=== PATIENT | female | born 1990 | race Caucasian/White ===

== ENCOUNTER 2018-06-18 05:52 | Emergency (ER) | payer BC, OTHER ==
[2018-06-18] MEDS ORDERED: ONDANSETRON 4 MG/2 ML VIAL ONE (06:32)
[2018-06-18] MEDS ORDERED: MORPHINE 4 MG/ML SYR ONE (06:32)
[2018-06-18] MEDS ORDERED: NA CHLORIDE 0.9% 1,000 ML ONE (06:35)
[2018-06-18 06:42] LABS: Absolute Lymphocytes (CBC) 2.2 K/uL (0.7-4.9); Absolute Monocytes 0.5 K/uL (0.1-1.3); Absolute Neutrophil 6.7 K/uL (1.8-8.0); Basophils % 0.7 % (0-1.3); Eosinophils % 2.2 % (0-4.4); Hematocrit 38.7 % (36.0-45.0); Lymphocytes % 22.3 % (15.3-44.8); MCH 31.2 pg (27.0-35.0); MCV 89.9 fL (80-100); MPV 9.6 fL (7.6-11.3); Monocytes % 5.4 % (3.3-12.3); RBC Red Blood Cell Count 4.31 M/uL (3.86-4.86)
[2018-06-18 06:43] LABS: Urine Bacteria >50 /HPF (<20); Urine Culture Reflex Order NOT NEEDED; Urine RBC NONE SEEN /HPF (NONE SEEN)
[2018-06-18 07:02] LABS: Urine Blood NEGATIVE (NEG); Urine Glucose NEGATIVE (NEG); Urine Protein NEGATIVE (NEG); Urine pH 5.5 (5.0-7.0)
[2018-06-18 07:12] LABS: Albumin 3.7 g/dL (3.4-5.0); Bilirubin Direct 0.2 mg/dL (0-0.2); Bilirubin Total 0.4 mg/dL (0.2-1.0); Potassium 3.3 mmol/L (3.5-5.1); Protein, Total 7.2 g/dL (6.4-8.2)
--- NOTE | 2018-06-18 10:01 | RAD REPORT ---
EXAM DESCRIPTION: CTAbdomen Pelvis W Contrast - 06/18/2018 9:27 am CLINICAL HISTORY: Abdominal pain. ABD PAIN COMPARISON: No comparisons TECHNIQUE: Biphasic CT imaging of the abdomen and pelvis was performed with 100 ml non-ionic IV cont rast. All CT scans are performed using dose optimization technique as appropriate and may include automated exposure control or mA/KV adjustment according to patient size. FINDINGS: The lung bases are clear. The liver, spleen, pancreas, adrenal glands and kidneys are within normal limits. No bowel obstruction, free air, free fluid or abscess. Moderate fecal retention in the colon. The sandrita endix is normal. Small fat containing umbilical hernia. No evidence of significant lymphadenopathy. No suspicious bony findings. IMPRESSION: No acute intra-abdominal or pelvic finding. Moderate fecal retention in the colon.
--- NOTE | 2018-06-18 10:05 | ER ---
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 pt is 3 months post . Transition of care: patient was not received from another setting of care. Onset of symptoms was June 18, 2018. Risk Assessment: Do you want to hurt yourself or someone else? Patient reports no desire to harm self or others. Initial Sepsis Screen: Does the patient meet any 2 criteria? No. Patient's initial sepsis screen is negative. Does the patient have a suspected source of infection? No. Patient's initial sepsis screen is negative. Care prior to arrival: None. 06:05 Method Of Arrival: Ambulatory ak1 06:05 Acuity: JORGE 3 ak1 Triage Assessment: 06:07 General: Appears uncomfortable, Behavior is calm, cooperative. Pain: Complains of pain ak1 in epigastric area. EENT: No signs and/or symptoms were reported regarding the EENT system. Neuro: No deficits noted. Cardiovascular: No deficits noted. Respiratory: No deficits noted. GI: Abdomen is round non-distended, Bowel sounds present X 4 quads. Reports upper abdominal pain, nausea, vomiting. : No signs and/or symptoms were reported regarding the genitourinary system. Derm: No signs and/or symptoms reported regarding the dermatologic system. Musculoskeletal: Range of motion: intact in all extremities, Reports pain in left scapular area, right scapular area, left subscapular area, right subscapular area and thoracic area since 0500. 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 - Social history:: Smoking status: Patient uses tobacco products, smokes one-half pack cigarettes per day. - Ebola Screening: : No symptoms or risks identified at this time. - Family history:: not pertinent. - Hospitalizations: : recently underwent approximately 3-4 months ago. Screenin:10 Abuse screen: Denies threats or abuse. Denies injuries from another. Nutritional ak1 screening: No deficits noted. Tuberculosis screening: No symptoms or risk factors identified. Fall Risk None identified. Assessment: 06:10 Reassessment: Patient appears in no apparent distress at this time. No changes from ak1 previously documented assessment. see triage assessment. General: Appears uncomfortable. Neuro: Level of Consciousness is awake, alert, obeys commands, Oriented to person, place, time, situation, Gait is steady, Speech is normal. 07:06 Reassessment: report given to Johnny Smith RN and Rachael Brunson RN. ak1 07:54 Reassessment: Patient appears in no apparent distress at this time. Patient and/or sg family updated on plan of care and expected duration. Pain level reassessed. CT notified pt finished PO contrast, spoke with Rody Patient states feeling better. GI: Patient currently denies nausea, pain. Vital Signs: 06:09 BP 121 / 71; Pulse 76; Resp 18; Temp 97.7(O); Pulse Ox 100% on R/A; Weight 83.91 kg ak1 (R); Height 5 ft. 4 in. (162.56 cm) (R); Pain 6/10; 06:37 BP 106 / 56; Pulse 75; Resp 16; Pulse Ox 100% on R/A; ak1 07:55 BP 99 / 54; Pulse 77; Resp 16; Pulse Ox 100% on R/A; sg 09:00 BP 98 / 62; Pulse 74; Resp 16 S; Pulse Ox 100% on R/A; jl7 10:21 BP 92 / 63; Pulse 75; Resp 16 S; Pulse Ox 99% on R/A; jl7 06:09 Body Mass Index 31.75 (83.91 kg, 162.56 cm) ak1 ED Course: 05:53 Patient arrived in ED. am2 06:05 Terri Morin, RN is Primary Nurse. ak1 06:06 Triage completed. ak1 06:07 Arm band placed on Patient placed in an exam room, on a stretcher, on pulse oximetry, ak1 Patient notified of wait time. 06:10 Patient has correct armband on for positive identification. Bed in low position. Call ak1 light in reach. Side rails up X 1. Pulse ox on. NIBP on. 06:12 Sharonda Parisi FNP is [facility]. kav 06:13 Shemar Larios MD is Attending Physician. kav 06:25 Urine Culture Sent. eb 06:25 Urine Microscopic Only Sent. eb 06:25 Inserted saline lock: 20 gauge in right antecubital area, using aseptic technique. ds4 Blood collected. 06:32 Basic Metabolic Panel Sent. ds4 06:32 CBC with Diff Sent. ds4 06:32 Creatinine for Radiology Sent. ds4 06:32 Hepatic Function Sent. ds4 06:32 Lipase Sent. ds4 06:32 Urine Microscopic Only Sent. ds4 06:32 Urine Culture Sent. ds4 06:32 Urine --Ancillary (enter results) Sent. ds4 06:32 Urine Dipstick--Ancillary (enter results) Sent. ds4 07:52 Primary Nurse role handed off by Terri Morin, RN sg 07:52 Johnny Bella, RN is Primary Nurse. sg 08:[address] Scan. sg 09:27 CT Abd/Pelvis - W/Contrast In Process Unspecified. EDMS 09:27 CT completed. Patient tolerated procedure well. Patient moved to CT via wheelchair. sj Patient moved back from CT. 10:22 No provider procedures requiring assistance completed. Patient did not have IV access jl7 during this emergency room visit. Administered Medications: 06:32 Drug: Zofran 4 mg Route: IVP; Site: right antecubital; ak1 06:35 Follow up: Response: No adverse reaction ak1 06:32 Drug: NS 0.9% 1000 ml Route: IV; Rate: 1000 ml; Site: right antecubital; ak1 06:33 Drug: morphine 2 mg Route: IVP; Site: right antecubital; ak1 06:35 Follow up: Response: No adverse reaction; Pain is decreased ak1 Outcome: 10:04 Discharge ordered by . kav 10:22 Discharged to home ambulatory. jl7 10:22 Condition: stable 10:22 Discharge instructions given to patient, family, Instructed on discharge instructions, follow up and referral plans. medication usage, Demonstrated understanding of instructions, follow-up care, medications, Prescriptions given X 2. 10:23 Patient left the ED. jl7 Addendum: 06/21/2018 15:19 Addendum: Culture Results: Positive urine culture. No further action required. Bacteria s s sensitive to prescribed antibiotic. Signatures: Dispatcher [employer] EDMS Johnny Bella, RN RN sg Sharonda Parisi, SQL PROGRAMMER ANALYST SQL PROGRAMMER ANALYST Rody Long Shelby, RN RN Alphonso Becker4 Terri Morin RN RN Rachael Leyva RN RN jl7 Devorah Dietz Elizabeth eb
--- NOTE | 2018-06-18 10:05 | EDPHYS ---
Physician Documentation [facility] Name: Katherine Ny Age: 28 yrs Sex: Female : 1990 Arrival Date: 06/18/2018 Time: 05:53 Bed 6 Private MD: ED Physician Shemar Larios HPI: 06/18 06:13 This 28 yrs old Female presents to ER via Ambulatory with complaints of Back kav Pain - rad to ribs. 06:46 The patient presents with abdominal pain in the epigastric area. Onset: The kav symptoms/episode began/occurred acutely, just prior to arrival, reports "...pain woke her from sleep". The symptoms radiate to back. Associated signs and symptoms: Pertinent positives: nausea and vomiting. The symptoms are described as crampy, intermittent, sharp. 06:48 Modifying factors: The symptoms are alleviated by nothing, the symptoms are aggravated kav by nothing. Severity of pain: At its worst the pain was moderate just prior to arrival, in the emergency department the pain is unchanged. The patient has not experienced similar symptoms in the past. The patient has not recently seen a physician. 3 months post-. 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 - Social history:: Smoking status: Patient uses tobacco products, smokes one-half pack cigarettes per day. - Ebola Screening: : No symptoms or risks identified at this time. - Family history:: not pertinent. - Hospitalizations: : recently underwent approximately 3-4 months ago. ROS: 06:48 Constitutional: Negative for fever, chills, and weight loss, Eyes: Negative for injury, kav pain, redness, and discharge, ENT: Negative for injury, pain, and discharge, Neck: Negative for injury, pain, and swelling, Cardiovascular: Negative for chest pain, palpitations, and edema, Respiratory: Negative for shortness of breath, cough, wheezing, and pleuritic chest pain, Back: Negative for injury and pain, : Negative for injury, bleeding, discharge, and swelling, MS/Extremity: Negative for injury and deformity, Skin: Negative for injury, rash, and discoloration, Neuro: Negative for headache, weakness, numbness, tingling, and seizure, Psych: Negative for depression, anxiety, suicide ideation, homicidal ideation, and hallucinations, Allergy/Immunology: Negative for hives, rash, and allergies, Endocrine: Negative for neck swelling, polydipsia, polyuria, polyphagia, and marked weight changes, Hematologic/Lymphatic: Negative for swollen nodes, abnormal bleeding, and unusual bruising. 06:48 Abdomen/GI: Positive for abdominal pain, nausea and vomiting, Negative for diarrhea, abdominal distension, hematemesis, black/tarry stool, rectal bleeding. Exam: 06:48 Constitutional: This is a well developed, well nourished patient who is awake, alert, kav and in no acute distress. Head/Face: Normocephalic, atraumatic. Eyes: Pupils equal round and reactive to light, extra-ocular motions intact. Lids and lashes normal. Conjunctiva and sclera are non-icteric and not injected. Cornea within normal limits. Periorbital areas with no swelling, redness, or edema. ENT: Nares patent. No nasal discharge, no septal abnormalities noted. Tympanic membranes are normal and external auditory canals are clear. Oropharynx with no redness, swelling, or masses, exudates, or evidence of obstruction, uvula midline. Mucous membranes moist. Neck: Trachea midline, no thyromegaly or masses palpated, and no cervical lymphadenopathy. Supple, full range of motion without nuchal rigidity, or vertebral point tenderness. No Meningismus. Chest/axilla: Normal chest wall appearance and motion. Nontender with no deformity. No lesions are appreciated. Cardiovascular: Regular rate and rhythm with a normal S1 and S2. No gallops, murmurs, or rubs. Normal PMI, no JVD. No pulse deficits. Respiratory: Lungs have equal breath sounds bilaterally, clear to auscultation and percussion. No rales, rhonchi or wheezes noted. No increased work of breathing, no retractions or nasal flaring. Back: No spinal tenderness. No costovertebral tenderness. Full range of motion. Skin: Warm, dry with normal turgor. Normal color with no rashes, no lesions, and no evidence of cellulitis. MS/ Extremity: Pulses equal, no cyanosis. Neurovascular intact. Full, normal range of motion. Neuro: Awake and alert, GCS 15, oriented to person, place, time, and situation. Cranial nerves II-XII grossly intact. Motor strength 5/5 in all extremities. Sensory grossly intact. Cerebellar exam normal. Normal gait. Psych: Awake, alert, with orientation to person, place and time. Behavior, mood, and affect are within normal limits. 06:48 Abdomen/GI: Inspection: abdomen appears normal, Bowel sounds: normal, in all quadrants, Palpation: moderate abdominal tenderness, in the epigastric area, right upper quadrant and left upper quadrant, Indicators: McBurney's point is not tender, Oliver's sign is negative, Rovsing's sign is negative, Obturator sign is negative, Psoas sign is negative. Vital Signs: 06:09 BP 121 / 71; Pulse 76; Resp 18; Temp 97.7(O); Pulse Ox 100% on R/A; Weight 83.91 kg ak1 (R); Height 5 ft. 4 in. (162.56 cm) (R); Pain 6/10; 06:37 BP 106 / 56; Pulse 75; Resp 16; Pulse Ox 100% on R/A; ak1 07:55 BP 99 / 54; Pulse 77; Resp 16; Pulse Ox 100% on R/A; sg 09:00 BP 98 / 62; Pulse 74; Resp 16 S; Pulse Ox 100% on R/A; jl7 10:21 BP 92 / 63; Pulse 75; Resp 16 S; Pulse Ox 99% on R/A; jl7 06:09 Body Mass Index 31.75 (83.91 kg, 162.56 cm) ak MDM: 06:13 Medical screening is not applicable. kav 06:48 Data reviewed: vital signs, nurses notes. kav 08:09 Awaiting: CT scan results, still drinking contrast. kav 09:59 Awaiting: CT scan results. kav 10:03 Data reviewed: lab test result(s), radiologic studies, CT scan. kav 10:19 Data reviewed: lab test result(s), radiologic studies, ct scan with no noted issues ka with pancreas. 06/18 06:17 Order name: Urine Dipstick--Ancillary (enter results); Complete Time: 07:20 06/18 06:17 Order name: Urine --Ancillary (enter results); Complete Time: 07:20 06/18 06:17 Order name: Urine Culture 06/18 06:17 Order name: Urine Microscopic Only; Complete Time: 06:53 06/18 06:53 Interpretation: Abnormal. [facility] 06/18 06:23 Order name: Basic Metabolic Panel; Complete Time: 07:20 [facility] 06/18 06:23 Order name: CBC with Diff; Complete Time: 07:20 [facility] 06/18 06:23 Order name: Creatinine for Radiology; Complete Time: 07:20 [facility] 06/18 06:23 Order name: Hepatic Function; Complete Time: 07:20 [facility] 06/18 06:23 Order name: Lipase; Complete Time: 07:20 [facility] 06/18 10:13 Interpretation: LIP [id number]. [facility] 06/18 06:23 Order name: IV Saline Lock; Complete Time: 06:32 [facility] 06/18 07:24 Order name: CT Abd/Pelvis - W/Contrast; Complete Time: 10:02 [facility] 06/18 10:03 Interpretation: Abnormal: Moderate fecal content is colon. [facility] 06/18 06:23 Order name: Labs collected and sent; Complete Time: 06:32 kav Administered Medications: 06:32 Drug: Zofran 4 mg Route: IVP; Site: right antecubital; ak1 06:35 Follow up: Response: No adverse reaction ak1 06:32 Drug: NS 0.9% 1000 ml Route: IV; Rate: 1000 ml; Site: right antecubital; ak1 06:33 Drug: morphine 2 mg Route: IVP; Site: right antecubital; ak1 06:35 Follow up: Response: No adverse reaction; Pain is decreased ak1 Disposition: 06/18/18 10:04 Discharged to Home. Impression: Constipation, Urinary tract infection, site not specified. - Condition is Stable. - Discharge Instructions: Urinary Tract Infection, Adult, [id number]. - Prescriptions for Miralax 17 gram/dose Oral - take 1 packet by ORAL route once daily for 8-10 days dilute powder in 8 ounces of water or juice; 1 bottle. Cipro 500 mg Oral Tablet - take 1 tablet by ORAL route every 12 hours for 7 days; 14 tablet. - Medication Reconciliation Form, Thank You Letter form. - Follow up: Private Physician; When: 5 - 6 days; Reason: If symptoms return, Recheck today's complaints, Continuance of care, Re-evaluation by your physician. - Problem is new. - Symptoms have improved. - Notes: return to ED if: temp \\T\\gt; 101 F intractable nausea/vomiting intractable abdominal pain f/u with pcp in 5-7 days torepeat lipase levels Signatures: Dispatcher [employer] EDMS Sharonda Parisi, ELECTRONICS HARDWARE DESIGN ENGINEER ELECTRONICS HARDWARE DESIGN ENGINEER kaTerri Lowe, RN RN ak1 Rachael Romeo RN RN jl7 Corrections: (The following items were deleted from the chart) 10:11 10:04 06/18/2018 10:04 Discharged to Home. Impression: Constipation. Condition is kav Stable. Forms are Medication Reconciliation Form, Thank You Letter, Antibiotic Education, Prescription Opioid Use. Follow up: Private Physician; When: 5 - 6 days; Reason: If symptoms return, Recheck today's complaints, Continuance of care, Re-evaluation by your physician. Problem is new. Symptoms have improved. kav 10:23 10:11 06/18/2018 10:04 Discharged to Home. Impression: Constipation; Urinary tract jl7 infection, site not specified. Condition is Stable. Prescriptions for Miralax 17 gram/dose Oral - take 1 packet by ORAL route once daily for 8-10 days dilute powder in 8 ounces of water or juice; 1 bottle. and Forms are Medication Reconciliation Form, Thank You Letter. Follow up: Private Physician; When: 5 - 6 days; Reason: If symptoms return, Recheck today's complaints, Continuance of care, Re-evaluation by your physician. Problem is new. Symptoms have improved. kav
== END 2018-06-18 10:23 | disposition home or self-care (01) ==
LOC: ER 05:52
DX: K59.00 Constipation, unspecified (principal); N39.0 Urinary tract infection, site not specified; F17.210 Nicotine dependence, cigarettes, uncomplicated; Z88.6 Allergy status to analgesic agent
CPT/HCPCS: 36415; 74177; 80048; 80076; 81003; 81015; 81025; 83690; 85025; 87077; 87086; 87088; 87186; 96374; 96375; 99284; J2405; J7030; Q9967

== ENCOUNTER 2018-07-13 05:31 | Emergency (ER) | payer BC ==
[2018-07-13] MEDS ORDERED: NA CHLORIDE 0.9% 1,000 ML ONE (06:30)
[2018-07-13 06:54] LABS: Albumin 3.7 g/dL (3.4-5.0); Bilirubin Direct 0.3 mg/dL (0-0.2); Bilirubin Total 0.5 mg/dL (0.2-1.0); Potassium 3.5 mmol/L (3.5-5.1); Protein, Total 6.9 g/dL (6.4-8.2)
[2018-07-13 06:55] LABS: Absolute Lymphocytes (CBC) 1.7 K/uL (0.7-4.9); Absolute Monocytes 0.5 K/uL (0.1-1.3); Absolute Neutrophil 8.7 K/uL (1.8-8.0); Basophils % 0.4 % (0-1.3); Eosinophils % 1.5 % (0-4.4); Hematocrit 38.1 % (36.0-45.0); Lymphocytes % 15.1 % (15.3-44.8); MCH 31.2 pg (27.0-35.0); MCV 91.4 fL (80-100); MPV 10.3 fL (7.6-11.3); Monocytes % 4.5 % (3.3-12.3); RBC Red Blood Cell Count 4.17 M/uL (3.86-4.86)
[2018-07-13] MEDS ORDERED: CEFOXITIN/SWI 1gm 1 GM/10 ML SYR ONE (07:51)
[2018-07-13] MEDS ORDERED: METRONIDAZOLE 500mg IVPB 500 MG/100 ML BAG IV ONE (07:51)
[2018-07-13 08:55] LABS: Urine Blood TRACE (NEG); Urine Glucose NEGATIVE (NEG); Urine Protein NEGATIVE (NEG); Urine Specific Gravity 1.015 (1.005-1.030); Urine pH 5.5 (5.0-7.0)
--- NOTE | 2018-07-13 09:01 | RAD REPORT ---
EXAM DESCRIPTION: US - Abdomen Exam Limited - 07/13/2018 8:39 am CLINICAL HISTORY: EPIGASTRIC PAIN COMPARISON: No comparisons FINDINGS: The gallbladder demonstrates multiple shadowing gallstones. No pericholecystic fluid or ga llbladder wall thickening. The common bile duct is normal measuring 3 mm. The liver demonstrates no findings of intrahepatic biliary dilatation. IMPRESSION: Cholelithiasis.
--- NOTE | 2018-07-13 09:29 | EDPHYS ---
Physician Documentation [facility] Name: Katherine Ny Age: 28 yrs Sex: Female : 1990 Arrival Date: 07/13/2018 Time: 05:32 Bed 16 Private MD: ED Physician [facility] HPI: 07/13 06:34 This 28 yrs old Female presents to ER via Wheelchair with complaints of Upper jmm Back Pain, Abdominal Pain - Upper. 06:34 The patient presents with abdominal pain in the epigastric area. Onset: The jmm symptoms/episode began/occurred acutely, this morning. The symptoms radiate to Associated signs and symptoms: Pertinent positives: vomiting. The symptoms are described as achy. 06:47 Modifying factors: The symptoms are alleviated by nothing. This is a 28 year old female jmm that presents to the ED with epigastric abdominal pain beginning earlier this morning. Patient states having one episode of vomiting. . Historical: - Allergies: 05:44 Sulfa (Sulfonamide Antibiotics); ea - Home Meds: 05:44 Ibuprofen Oral [Active]; ea - PMHx: 05:44 JRA; ea - PSHx: 05:44 ; ea - Immunization history:: Adult Immunizations up to date. - Social history:: Smoking status: Patient/guardian denies using tobacco. - Ebola Screening: : No symptoms or risks identified at this time. ROS: 06:50 Constitutional: Negative for fever, chills, and weight loss, Eyes: Negative for injury, jmm pain, redness, and discharge, ENT: Negative for injury, pain, and discharge, Neck: Negative for injury, pain, and swelling, Cardiovascular: Negative for chest pain, palpitations, and edema, Respiratory: Negative for shortness of breath, cough, wheezing, and pleuritic chest pain. 06:50 : Negative for injury, bleeding, discharge, and swelling, MS/Extremity: Negative for injury and deformity, Skin: Negative for injury, rash, and discoloration. 06:50 Abdomen/GI: Positive for abdominal pain, nausea, vomiting. 06:50 Back: Positive for radiated pain. 06:50 All other systems are negative. Exam: 06:50 Constitutional: This is a well developed, well nourished patient who is awake, alert, jmm and in no acute distress. Head/Face: atraumatic. Eyes: EOMI, no conjunctival erythema appreciated ENT: Moist Mucus Membranes Neck: Trachea midline, Supple Chest/axilla: Normal chest wall appearance and motion. Cardiovascular: Regular rate and rhythm. No edema appreciated Respiratory: Normal respirations, no respiratory distress appreciated Abdomen/GI: Non distended, soft Back: Normal ROM Skin: General appearance color normal MS/ Extremity: Moves all extremities, no obvious deformities appreciated, no edema noted to the lower extremities Neuro: Awake and alert, normal gait Vital Signs: 05:41 BP 112 / 83; Pulse 81; Resp 18; Temp 97.8; Pulse Ox 100% ; Weight 81.65 kg; Height 5 ea ft. 4 in. (162.56 cm); Pain 8/10; 07:25 BP 97 / 61; Pulse 67; Resp 17; Pulse Ox 100% on R/A; tw2 09:08 BP 97 / 66; Pulse 56; Resp 17; Pulse Ox 100% on R/A; tw2 05:41 Body Mass Index 30.90 (81.65 kg, 162.56 cm) ea MDM: 06:16 Patient medically screened. [facility] 07:42 Data reviewed: vital signs, nurses notes, lab test result(s). Counseling: I had a [facility] detailed discussion with the patient and/or guardian regarding: the historical points, exam findings, and any diagnostic results supporting the discharge/admit diagnosis, lab results, radiology results, the need to transfer to another facility. 09:21 ED course: I discussed the patient with Dr. Kelly whom will consult on transfer. . [facility] 09:27 ED course: I discussed the patient with hospitalist whom accepted transfer. . [facility] 07/13 06:17 Order name: Basic Metabolic Panel; Complete Time: 07:06 [facility] 07/13 06:17 Order name: CBC with Diff; Complete Time: 07:06 [facility] 07/13 06:17 Order name: Creatinine for Radiology; Complete Time: 06:50 [facility] 07/13 06:17 Order name: Hepatic Function; Complete Time: 07:06 [facility] 07/13 06:17 Order name: Lipase; Complete Time: 07:06 [facility] 07/13 07:07 Interpretation: Abnormal: LIP 647. [facility] 07/13 08:25 Order name: Urine Dipstick--Ancillary (enter results); Complete Time: 09:00 07/13 06:17 Order name: IV Saline Lock; Complete Time: 06:22 [facility] 07/13 06:17 Order name: Labs collected and sent; Complete Time: 06:26 [facility] 07/13 06:33 Order name: Urine Dipstick-Ancillary (obtain specimen); Complete Time: 07:41 [facility] 07/13 06:48 Order name: US Abdomen Limited; Complete Time: 09:03 [facility] 07/13 08:25 Order name: Urine --Ancillary (enter results); Complete Time: 09:00 bd Administered Medications: 06:26 Drug: NS 0.9% 1000 ml Route: IV; Rate: 1 bolus; Site: right antecubital; cc3 10:00 Follow up: Response: No adverse reaction; IV Status: Completed infusion; IV Intake: tw2 1000ml 07:43 Drug: Mefoxin 1 grams {Note: IVP available only from pharmacy provider aware.} Route: tw2 IVPB; Infused Over: 5 mins; Site: right antecubital; 07:48 Follow up: Response: No adverse reaction; IV Status: Completed infusion tw2 07:48 Drug: Flagyl 500 mg Volume: 100 ml; Route: IVPB; Rate: 200 ml/hr; Infused Over: 30 tw2 mins; Site: right antecubital; 08:25 Follow up: Response: No adverse reaction; IV Status: Completed infusion tw2 Disposition: 07/13/18 09:28 Transfer ordered to [facility]. Diagnosis are Cholelithiasis, Acute pancreatitis. - Reason for transfer: Higher level of care. - [facility] - Condition is Stable. - Problem is new. - Symptoms have improved. Signatures: Dispatcher [employer] EDMS Chai Daniel PA PA jmm Wise, Tara RN RN tw2 Stephenie Ross, India Bernal RN, ea cc3 Corrections: (The following items were deleted from the chart) 10: 09:28 07/13/2018 09:28 Transfer ordered to [facility]. Diagnosis is tw2 Cholelithiasis; Acute pancreatitis. Reason for transfer: Higher level of care. [facility] Condition is Stable. Problem is new. Symptoms have improved. jmm
--- NOTE | 2018-07-13 09:29 | ER ---
Nurse's Notes [facility] Name: Katherine Ny Age: 28 yrs Sex: Female : 1990 Arrival Date: 07/13/2018 Time: 05:32 Bed 16 Private MD: Diagnosis: Cholelithiasis;Acute pancreatitis Presentation: 07/13 05:41 Presenting complaint: Patient states: Pt reports she started having epigastric pain ea that radiates to the back with nausea and vomiting about an hour and a half ago . Transition of care: patient was not received from another setting of care. Onset of symptoms was July 13, 2018. Risk Assessment: Do you want to hurt yourself or someone else? Patient reports no desire to harm self or others. Initial Sepsis Screen: Does the patient meet any 2 criteria? No. Patient's initial sepsis screen is negative. Does the patient have a suspected source of infection? No. Patient's initial sepsis screen is negative. Care prior to arrival: None. 05:41 Method Of Arrival: Wheelchair ea 05:41 Acuity: JORGE 3 ea Triage Assessment: 05:46 General: Appears uncomfortable, Behavior is calm, cooperative, appropriate for age. ea Pain: Complains of pain in epigastric area Pain radiates to mid back area Pain currently is 8 out of 10 on a pain scale. Quality of pain is described as aching. Neuro: Level of Consciousness is awake, alert, obeys commands, Oriented to person, place, time, situation. Respiratory: Airway is patent Respiratory effort is even, unlabored, Respiratory pattern is regular, symmetrical. GI: Abdomen is non-distended, Reports nausea, vomiting. Historical: - Allergies: 05:44 Sulfa (Sulfonamide Antibiotics); ea - Home Meds: 05:44 Ibuprofen Oral [Active]; ea - PMHx: 05:44 JRA; ea - PSHx: 05:44 ; ea - Immunization history:: Adult Immunizations up to date. - Social history:: Smoking status: Patient/guardian denies using tobacco. - Ebola Screening: : No symptoms or risks identified at this time. Screenin:53 Abuse screen: Denies threats or abuse. Nutritional screening: No deficits noted. ea Tuberculosis screening: No symptoms or risk factors identified. Fall Risk None identified. Assessment: 06:29 Reassessment: Patient and/or family updated on plan of care and expected duration. Pain ea level reassessed. Patient is alert, oriented x 3, equal unlabored respirations, skin warm/dry/pink. 07:25 Reassessment: Patient appears in no apparent distress at this time. Patient and/or tw2 family updated on plan of care and expected duration. Pain level reassessed. Patient is alert, oriented x 3, equal unlabored respirations, skin warm/dry/pink. US at bedside at this time. 08:00 Reassessment: Patient appears in no apparent distress at this time. No changes from tw2 previously documented assessment. Patient and/or family updated on plan of care and expected duration. Pain level reassessed. Patient is alert, oriented x 3, equal unlabored respirations, skin warm/dry/pink. 09:09 Reassessment: Patient appears in no apparent distress at this time. No changes from tw2 previously documented assessment. Patient and/or family updated on plan of care and expected duration. Pain level reassessed. Patient is alert, oriented x 3, equal unlabored respirations, skin warm/dry/pink. 10:27 GI: Bowel sounds present X 4 quads. Abd is soft X 4 quads. tw2 Vital Signs: 05:41 BP 112 / 83; Pulse 81; Resp 18; Temp 97.8; Pulse Ox 100% ; Weight 81.65 kg; Height 5 ea ft. 4 in. (162.56 cm); Pain 8/10; 07:25 BP 97 / 61; Pulse 67; Resp 17; Pulse Ox 100% on R/A; tw2 09:08 BP 97 / 66; Pulse 56; Resp 17; Pulse Ox 100% on R/A; tw2 05:41 Body Mass Index 30.90 (81.65 kg, 162.56 cm) ea ED Course: 05:32 Patient arrived in ED. ds1 05:39 Stephenie Ross, ANNABEL is Primary Nurse. ea 05:41 Patient has correct armband on for positive identification. ea 05:43 Triage completed. ea 05:56 Arm band placed on. ea 06:01 Chai Daniel PA is PHCP. lacie 06:02 Omsan House MD is Attending Physician. jmm 06:22 Inserted saline lock: 20 gauge in right antecubital area, using aseptic technique. ea Blood collected. 07:20 Ultrasound completed. Other: portable/at bedside. hr 07:24 US Abdomen Limited In Process Unspecified. EDMS 07:26 Primary Nurse role handed off by Stephenie Ross RN tw2 07:26 Dipika Haskins, RN is Primary Nurse. tw2 10:27 No provider procedures requiring assistance completed. Patient transferred, IV remains tw2 in place. Administered Medications: 06:26 Drug: NS 0.9% 1000 ml Route: IV; Rate: 1 bolus; Site: right antecubital; cc3 10:00 Follow up: Response: No adverse reaction; IV Status: Completed infusion; IV Intake: tw2 1000ml 07:43 Drug: Mefoxin 1 grams {Note: IVP available only from pharmacy provider aware.} Route: tw2 IVPB; Infused Over: 5 mins; Site: right antecubital; 07:48 Follow up: Response: No adverse reaction; IV Status: Completed infusion tw2 07:48 Drug: Flagyl 500 mg Volume: 100 ml; Route: IVPB; Rate: 200 ml/hr; Infused Over: 30 tw2 mins; Site: right antecubital; 08:25 Follow up: Response: No adverse reaction; IV Status: Completed infusion tw2 Intake: 10:00 IV: 1000ml; Total: 1000ml. tw2 Outcome: 09:28 ER care complete, transfer ordered by MD. scott 10:27 Transferred by ground EMS to [facility]. tw2 10:27 Condition: stable 10:27 Instructed on the need for transfer. 10:28 Patient left the ED. tw2 Signatures: Dispatcher [employer] EDMS Chai Daniel PA PA jmm Rod, Haley hr Cholo, Conchita ds1 Dipika Haskins, RN RN tw2 Stephenie Ross, ANNABEL RN India Clarke cc3
== END 2018-07-13 10:28 | disposition short-term general hospital (02) ==
LOC: ER 05:31
DX: K80.20 Calculus of gallbladder without cholecystitis without obstruction (principal); K85.90 Acute pancreatitis without necrosis or infection, unspecified
CPT/HCPCS: 36415; 76705; 80048; 80076; 81003; 81025; 83690; 85025; 96361; 96365; 96375; 99285; J7030